=== PATIENT | female | born 1930 | race Caucasian/White ===

== ENCOUNTER 2022-05-09 16:58 | Inpatient (IN) | payer OTHER ==
[2022-05-09 17:44] VITALS: BMI 25.4
[2022-05-09 18:39] LABS: BASO % 0.2 % (0-2.0); EOS % 0.3 % (0-4.5); HEMATOCRIT 41.9 % (32.4-45.2); HEMOGLOBIN 13.5 GM/dL (10.7-15.3); MCH 29.8 pg (25.7-33.7); MCHC 32.2 g/dl (32.0-36.0); MEAN CELL VOLUME 92.5 fl (80-96); MEAN PLT VOLUME 6.5 fl (7.5-11.1); MONO % 7.4 % (3.8-10.2); NEUT % 83.1 % (42.8-82.8); PLATELET COUNT 364 10^3/uL (134-434); RBC 4.52 M/mm3 (3.60-5.2); RDW 14.7 % (11.6-15.6); WHITE BLOOD COUNT 10.7 K/mm3 (4.0-10.0)
[2022-05-09 18:48] LABS: INR 1.29 (0.83-1.09); PROTHROMBIN TIME (PATIENT) 14.9 SEC (9.7-13.0)
[2022-05-09 18:51] LABS: ACTIVATED PTT 33.9 SECONDS (25.2-36.5)
[2022-05-09 19:14] LABS: BLOOD UREA NITROGEN 25.3 mg/dL (7-18); CALCIUM 8.9 mg/dL (8.5-10.1)
[2022-05-09 19:15] LABS: ALBUMIN 3.2 g/dl (3.4-5.0)
[2022-05-09 19:18] LABS: CREATININE 0.8 mg/dL (0.55-1.3)
[2022-05-09 19:19] LABS: BILIRUBIN,TOTAL 0.8 mg/dL (0.2-1); TOT PROT 7.1 g/dl (6.4-8.2)
[2022-05-09 19:31] LABS: PH,URINE 5.5 (5.0-8.0); URINE APPEARANCE CLEAR; URINE BILIRUBIN NEGATIVE (NEGATIVE); URINE COLOR YELLOW; URINE GLUCOSE (UA) NEGATIVE (NEGATIVE); URINE KETONE 1+ (NEGATIVE); URINE LEUK ESTERASE NEGATIVE (NEGATIVE); URINE NITRITE NEGATIVE (NEGATIVE); URINE PROTEIN TRACE (NEGATIVE)
[2022-05-10 06:42] LABS: BASO % 0.2 % (0-2.0); EOS % 1.5 % (0-4.5); HEMATOCRIT 37.5 % (32.4-45.2); HEMOGLOBIN 12.3 GM/dL (10.7-15.3); LYMPH % 13.7 % (8-40); MCH 30.7 pg (25.7-33.7); MCHC 32.9 g/dl (32.0-36.0); MEAN CELL VOLUME 93.4 fl (80-96); MEAN PLT VOLUME 6.7 fl (7.5-11.1); MONO % 9.1 % (3.8-10.2); NEUT % 75.5 % (42.8-82.8); PLATELET COUNT 325 10^3/uL (134-434); RBC 4.01 M/mm3 (3.60-5.2); RDW 14.8 % (11.6-15.6); WHITE BLOOD COUNT 9.3 K/mm3 (4.0-10.0)
[2022-05-10 07:15] LABS: CALCIUM 8.6 mg/dL (8.5-10.1)
[2022-05-10 07:16] LABS: ALBUMIN 2.8 g/dl (3.4-5.0)
[2022-05-10 07:19] LABS: BILIRUBIN,TOTAL 0.6 mg/dL (0.2-1); CREATININE 0.7 mg/dL (0.55-1.3)
[2022-05-10 07:22] LABS: TOT PROT 6.4 g/dl (6.4-8.2)
[2022-05-10] MEDS: HEPARIN NA (PORCINE) 5,000 UNITS/ML 1ML VIAL SQ SCH ×2 (11:06→21:42)
[2022-05-10] MEDS: ACETAMINOPHEN 325 MG TABLET (FP) PO PRN ×2 (11:20→17:59)
[2022-05-10] MEDS ORDERED: SODIUM CHLORIDE 0.45% 1,000 ML IV SCH (16:45)
[2022-05-10] MEDS ORDERED: PATIENT'S OWN MEDICATION (NON-FORMULARY) (Dorzolamide/Timolol/Pf [Dorzolamide-Timolol 2%-0 OU SCH (22:00)
[2022-05-10] MEDS: LATANOPROST 0.005% OPHTH SOLN 2.5ML BOTTLE OD SCH (22:26)
[2022-05-10] MEDS: BRIMONIDINE TARTRATE 0.2% OPHTHALMIC 5 ML BOTTLE OD SCH (22:28)
[2022-05-11 10:05] LABS: BASO % 0.2 % (0-2.0); EOS % 1.8 % (0-4.5); HEMATOCRIT 36.7 % (32.4-45.2); HEMOGLOBIN 11.9 GM/dL (10.7-15.3); LYMPH % 20.4 % (8-40); MCH 30.1 pg (25.7-33.7); MCHC 32.5 g/dl (32.0-36.0); MEAN CELL VOLUME 92.6 fl (80-96); MEAN PLT VOLUME 6.6 fl (7.5-11.1); MONO % 11.4 % (3.8-10.2); NEUT % 66.2 % (42.8-82.8); PLATELET COUNT 310 10^3/uL (134-434); RBC 3.96 M/mm3 (3.60-5.2); RDW 14.6 % (11.6-15.6); WHITE BLOOD COUNT 7.4 K/mm3 (4.0-10.0)
[2022-05-11] MEDS: PILOCARPINE 2% OPHTHALMIC SOLUTION 15 ML BOTTLE OS SCH ×4 (10:19→21:46)
[2022-05-11] MEDS: TIMOLOL 0.5% OPHTHALMIC SOL 5 ML BOTTLE OU SCH ×2 (10:19→21:42)
[2022-05-11] MEDS: HEPARIN NA (PORCINE) 5,000 UNITS/ML 1ML VIAL SQ SCH ×2 (10:19→21:33)
[2022-05-11] MEDS: DORZOLAMIDE 2% HCL OPHTHALMIC SOLUTION 10 ML BOTTLE OU SCH ×2 (10:19→21:42)
[2022-05-11 10:26] LABS: ALBUMIN 2.6 g/dl (3.4-5.0); BLOOD UREA NITROGEN 12.9 mg/dL (7-18)
[2022-05-11 10:29] LABS: CREATININE 0.6 mg/dL (0.55-1.3)
[2022-05-11 10:30] LABS: BILIRUBIN,TOTAL 0.4 mg/dL (0.2-1)
[2022-05-11] MEDS: BRIMONIDINE TARTRATE 0.2% OPHTHALMIC 5 ML BOTTLE OD SCH ×2 (10:34→21:39)
[2022-05-11] MEDS ORDERED: POTASSIUM CHLORIDE ORAL LIQUID 20 MEQ/15 ML PO ONE (12:45)
[2022-05-11] MEDS: LATANOPROST 0.005% OPHTH SOLN 2.5ML BOTTLE OD SCH (21:39)
[2022-05-11] MEDS: ACETAMINOPHEN 325 MG TABLET (FP) PO PRN (21:47)
[2022-05-12 00:59] VITALS: RESP 20
[2022-05-12 08:11] LABS: ALBUMIN 2.7 g/dl (3.4-5.0); BLOOD UREA NITROGEN 12.1 mg/dL (7-18); CALCIUM 8.4 mg/dL (8.5-10.1); MAGNESIUM 2.2 mg/dL (1.8-2.4)
[2022-05-12 08:14] LABS: CREATININE 0.5 mg/dL (0.55-1.3)
[2022-05-12 08:17] LABS: TOT PROT 6.3 g/dl (6.4-8.2)
[2022-05-12 08:18] LABS: BILIRUBIN,TOTAL 0.6 mg/dL (0.2-1)
[2022-05-12] MEDS: PILOCARPINE 2% OPHTHALMIC SOLUTION 15 ML BOTTLE OS SCH ×4 (10:21→22:12)
[2022-05-12] MEDS: HEPARIN NA (PORCINE) 5,000 UNITS/ML 1ML VIAL SQ SCH ×2 (10:21→22:10)
[2022-05-12] MEDS: TIMOLOL 0.5% OPHTHALMIC SOL 5 ML BOTTLE OU SCH ×2 (10:22→22:13)
[2022-05-12] MEDS: DORZOLAMIDE 2% HCL OPHTHALMIC SOLUTION 10 ML BOTTLE OU SCH ×2 (10:22→22:13)
[2022-05-12] MEDS: BRIMONIDINE TARTRATE 0.2% OPHTHALMIC 5 ML BOTTLE OD SCH ×2 (10:23→22:11)
[2022-05-12] MEDS: ACETAMINOPHEN 325 MG TABLET (FP) PO PRN (17:32)
[2022-05-12] MEDS: LATANOPROST 0.005% OPHTH SOLN 2.5ML BOTTLE OD SCH (22:11)
[2022-05-13 08:23] LABS: BLOOD UREA NITROGEN 9.5 mg/dL (7-18); CALCIUM 8.8 mg/dL (8.5-10.1)
[2022-05-13 08:28] LABS: CREATININE 0.6 mg/dL (0.55-1.3)
[2022-05-13] MEDS: PILOCARPINE 2% OPHTHALMIC SOLUTION 15 ML BOTTLE OS SCH ×5 (10:08→21:42)
[2022-05-13] MEDS: HEPARIN NA (PORCINE) 5,000 UNITS/ML 1ML VIAL SQ SCH ×2 (10:08→21:40)
[2022-05-13] MEDS: DORZOLAMIDE 2% HCL OPHTHALMIC SOLUTION 10 ML BOTTLE OU SCH ×2 (10:08→21:43)
[2022-05-13] MEDS: BRIMONIDINE TARTRATE 0.2% OPHTHALMIC 5 ML BOTTLE OD SCH ×2 (10:08→21:40)
[2022-05-13] MEDS: TIMOLOL 0.5% OPHTHALMIC SOL 5 ML BOTTLE OU SCH ×2 (10:08→21:42)
[2022-05-13] MEDS: ACETAMINOPHEN 325 MG TABLET (FP) PO PRN (16:10)
[2022-05-13] MEDS: LATANOPROST 0.005% OPHTH SOLN 2.5ML BOTTLE OD SCH (21:41)
[2022-05-14] MEDS: ACETAMINOPHEN 325 MG TABLET (FP) PO PRN (03:24)
[2022-05-14] MEDS: TIMOLOL 0.5% OPHTHALMIC SOL 5 ML BOTTLE OU SCH (09:19)
[2022-05-14] MEDS: HEPARIN NA (PORCINE) 5,000 UNITS/ML 1ML VIAL SQ SCH (09:19)
[2022-05-14] MEDS: PILOCARPINE 2% OPHTHALMIC SOLUTION 15 ML BOTTLE OS SCH ×2 (09:19→13:34)
[2022-05-14] MEDS: DORZOLAMIDE 2% HCL OPHTHALMIC SOLUTION 10 ML BOTTLE OU SCH (09:19)
[2022-05-14] MEDS: BRIMONIDINE TARTRATE 0.2% OPHTHALMIC 5 ML BOTTLE OD SCH (09:20)
[2022-05-14 14:30] VITALS: BP 116/72; PULSE 96; TEMP 97.8
== END 2022-05-14 14:51 | DRG 312 ==
LOC: JER 16:58 → JERBED 19:44 → J4W 21:53
PROVIDERS: ADMIT Internal Medicine; ATTEND Internal Medicine
DX: R55 Syncope and collapse (principal); S22.048A Other fracture of fourth thoracic vertebra, initial encounter for closed fracture; M62.82 Rhabdomyolysis; E87.20 Acidosis, unspecified; E86.0 Dehydration; R41.82 Altered mental status, unspecified; G93.89 Other specified disorders of brain; H40.9 Unspecified glaucoma; E87.6 Hypokalemia; W18.39XA Other fall on same level, initial encounter; Y92.098 Other place in other non-institutional residence as the place of occurrence of the external cause
CPT/HCPCS: 0241U-QW; 36415; 70450-TC; 71045-TC-FY; 72125-TC; 72128-TC; 72170-TC-FY; 80048; 80053; 81003; 82550; 82553; 82962; 83735; 84484; 85025; 85610; 85730; 86850; 86900; 86901; 87086; 87186; 93005; 93010; 93306-TC; 93880-TC; 97116-GP; 97161-GP; 99285-25; C9803-CS; J1644; U0003; U0005